=== PATIENT | female | born 1950 | race Caucasian/White ===

== ENCOUNTER 2023-07-12 10:00 | Day surgery (SDC) | payer MEDICARE, BC ==
[~2023-07-12 10:00] MED LIST: Acetaminophen 325 MG Tab PO SCH; EPINEPHrine 1 MG/ML SDV ONE; Lactated Ringers 1,000 ML IV SCH; Morphine 8 MG, EPINEPHrine 0.3 MG, Ketorolac 30 MG, Sodium Chloride 0.9% 7.9 ML PRN; Pregabalin 25 MG Cap PO SCH; Ropivacaine 0.5% 5 MG/ML 30 ML SDV ONE; Sodium Chloride 0.9% 10 ML Syringe FLUSH PRN; Sodium Chloride 0.9% 10 ML Syringe FLUSH SCH; oxyCODONE ER 10 MG TAB.ER PO SCH
[2023-07-12] MEDS ORDERED: Propofol 200 MG/20 ML SDV ONE ×2 (10:14→13:17)
[2023-07-12] MEDS ORDERED: Dexmedetomidine 200 MCG/2 ML SDV ONE (10:14)
[2023-07-12] MEDS ORDERED: Lactated Ringers 1,000 ML ONE ×2 (10:14→13:32)
[2023-07-12] MEDS ORDERED: ceFAZolin 2 GM Vial ONE (10:14)
[2023-07-12] MEDS ORDERED: fentaNYL 100 MCG/2 ML SDV ONE (10:14)
[2023-07-12] MEDS ORDERED: Ketorolac 15 MG/ML SDV ONE (10:14)
[2023-07-12] MEDS ORDERED: Ondansetron 4 MG/2 ML SDV ONE (10:14)
[2023-07-12] MEDS ORDERED: Midazolam 1 MG/ML 2 ML SDV ONE (10:14)
[2023-07-12] MEDS ORDERED: Ketamine 500 mg/10 ML MDV ONE (10:15)
[2023-07-12] MEDS ORDERED: Vancomycin 1 GM SDV ONE (11:07)
[2023-07-12] MEDS ORDERED: Tranexamic Acid 1,000 MG/10 ML Vial ONE (11:07)
[2023-07-12] MEDS ORDERED: Triamcinolone Acetonide 40 MG/ML 1 ML SDV ONE (11:16)
[2023-07-12] MEDS ORDERED: Bupivacaine 0.25% 10 ML SDV ONE (11:16)
[2023-07-12] MEDS ORDERED: Phenylephrine 1% 10 MG/ML SDV ONE (11:56)
[2023-07-12] MEDS ORDERED: Ondansetron 4 MG/2 ML SDV IVPUSH PRN (12:33)
[2023-07-12] MEDS ORDERED: fentaNYL 100 MCG/2 ML SDV IVPUSH PRN (12:33)
[2023-07-12] MEDS ORDERED: diphenhydrAMINE 50 MG/ML SDV IVPUSH PRN (12:33)
[2023-07-12] MEDS ORDERED: HYDROmorphone 0.5 MG/0.5 ML Syringe IVPUSH PRN (12:33)
[2023-07-12] MEDS ORDERED: ePHEDrine 50 MG/ML SDV IVPUSH PRN (12:33)
[2023-07-12] MEDS ORDERED: Albuterol 0.083% 2.5 MG/3 ML Neb Soln NEB PRN (12:33)
[2023-07-12] MEDS ORDERED: Phenylephrine 10 MG in Sodium Chloride 0.9% 99 ML IV SCH (12:45)
[2023-07-12] MEDS ORDERED: ePHEDrine 50 MG/ML SDV ONE (12:48)
[2023-07-12 16:04] VITALS: BP 111/65; PULSE 65
== END 2023-07-12 17:00 | disposition home or self-care (01) ==
LOC: JD.SDS 10:00
PROVIDERS: ATTEND Orthopaedic Surgery
DX: F32.A Depression, unspecified (principal); E66.9 Obesity, unspecified; R53.1 Weakness; N39.0 Urinary tract infection, site not specified; F41.9 Anxiety disorder, unspecified; R00.2 Palpitations; E55.9 Vitamin D deficiency, unspecified; Z88.1 Allergy status to other antibiotic agents; Z79.01 Long term (current) use of anticoagulants; Z79.899 Other long term (current) drug therapy; Z68.35 Body mass index [BMI] 35.0-35.9, adult; M17.0 Bilateral primary osteoarthritis of knee; I10 Essential (primary) hypertension; J45.909 Unspecified asthma, uncomplicated; Z90.710 Acquired absence of both cervix and uterus; Z98.51 Tubal ligation status
CPT/HCPCS: 0055T; 20610; 27447; 64447; 73560; 97110; 97116; 97161; A9270; C1713; C1776; J0171; J0690; J1885; J2250; J2270; J2370; J2405; J2704; J2795; J3010; J3301; J3370; J3490; J7030; J7120; 01402; 99100

== ENCOUNTER 2024-05-29 06:00 | Day surgery (SDC) | payer MEDICARE, BC ==
[~2024-05-29 06:00] MED LIST changes: -Acetaminophen 325 MG Tab PO SCH; -EPINEPHrine 1 MG/ML SDV ONE; -Pregabalin 25 MG Cap PO SCH; -Ropivacaine 0.5% 5 MG/ML 30 ML SDV ONE; -oxyCODONE ER 10 MG TAB.ER PO SCH
[2024-05-29] MEDS: Lactated Ringers 1,000 ML IV SCH (06:15)
[2024-05-29] MEDS: oxyCODONE ER 10 MG TAB.ER PO SCH (06:26)
[2024-05-29] MEDS: Pregabalin 25 MG Cap PO SCH (06:26)
[2024-05-29] MEDS: Acetaminophen 325 MG Tab PO SCH (06:27)
[2024-05-29] MEDS ORDERED: Propofol 200 MG/20 ML SDV ONE (06:36)
[2024-05-29] MEDS ORDERED: Midazolam 1 MG/ML 2 ML SDV ONE (06:37)
[2024-05-29] MEDS ORDERED: fentaNYL 100 MCG/2 ML SDV ONE (06:37)
[2024-05-29] MEDS ORDERED: ceFAZolin 2 GM Vial ONE (07:00)
[2024-05-29] MEDS: Morphine 8 MG, EPINEPHrine 0.3 MG, Ketorolac 30 MG, Sodium Chloride 0.9% 7.9 ML PRN (07:53)
[2024-05-29] MEDS ORDERED: Lactated Ringers 1,000 ML IV ONE (08:00)
[2024-05-29] MEDS: Vancomycin 1 GM SDV ONE (08:01)
[2024-05-29] MEDS: Tranexamic Acid 1,000 MG/10 ML Vial ONE (08:01)
[2024-05-29] MEDS ORDERED: Ketorolac 30 MG/ML SDV ONE (08:22)
[2024-05-29] MEDS ORDERED: Ondansetron 4 MG/2 ML SDV ONE (08:22)
[2024-05-29] MEDS ORDERED: ePHEDrine 50 MG/ML SDV ONE (08:22)
[2024-05-29] MEDS ORDERED: Ropivacaine 0.5% 5 MG/ML 30 ML SDV ONE (08:51)
[2024-05-29] MEDS: oxyCODONE 5 MG Tab PO SCH (10:12)
[2024-05-29 10:15] VITALS: PULSE 57
[2024-05-29 11:45] VITALS: BP 118/76
[2024-05-29] MEDS: oxyCODONE 5 MG Tab PO ONE (12:09)
[2024-05-29] MEDS: Ondansetron 4 MG/2 ML SDV IVPUSH SCH (12:15)
== END 2024-05-29 12:23 | disposition home or self-care (01) ==
LOC: JD.SDS 06:00
PROVIDERS: ATTEND Orthopaedic Surgery
DX: M17.12 Unilateral primary osteoarthritis, left knee (principal); E55.9 Vitamin D deficiency, unspecified; E66.9 Obesity, unspecified; R73.01 Impaired fasting glucose; F41.9 Anxiety disorder, unspecified; F32.A Depression, unspecified; I10 Essential (primary) hypertension; E78.5 Hyperlipidemia, unspecified; Z79.2 Long term (current) use of antibiotics; Z79.899 Other long term (current) drug therapy; Z88.8 Allergy status to other drugs, medicaments and biological substances; Z79.01 Long term (current) use of anticoagulants; Z68.32 Body mass index [BMI] 32.0-32.9, adult
CPT/HCPCS: 0055T; 27447; 64447; 73560; 97110; 97161; A9270; C1713; C1776; J0171; J0690; J1885; J2250; J2270; J2405; J2704; J2795; J3010; J3370; J7120; 01402; 99100; J3490